=== PATIENT | male | born 1940 ===

== ENCOUNTER → 2023-08-12 | Day surgery (SDC) | payer OTHER ==
[~2023-08-12] MED LIST: ATACAND32 MG PO; B12 ACTIVE1000 MCG PO; CARDURA1 MG PO; CHILDREN'S ASPI81 MG PO; CRESTOR5 MG PO; DESCOVY 200-251 EACH PO; TIVICAY50 MG PO
== END | disposition home or self-care (01) ==
LOC: ADM 08-09 10:30 → CIR.AMB 06:35
PROVIDERS: ATTEND Anesthesiology Pain Medicine
DX: A53.0 Latent syphilis, unspecified as early or late (principal); I10 Essential (primary) hypertension